=== PATIENT | female | born 1960 | race Caucasian/White ===

== ENCOUNTER 2018-01-28 09:56 | Inpatient (IN) | payer OTHER ==
[2018-01-28 12:33] VITALS: BMI 19.5
[2018-01-31] MEDS ORDERED: CEFAZOLIN/Water 2 GM/20 ML SYRINGE ONE (10:31)
[2018-01-31 11:13] LABS: PTT 28.9 SEC (22.9-36.1); Prothrombin Time 13.2 SEC (12.0-14.7)
[2018-01-31 11:16] LABS: #Basophils 0.1 thou/uL (0.0-0.2); #Eosinphils 0.1 thou/uL (0.0-0.7); #Lymphocytes 2.2 thou/uL (1.20-3.40); #Monocytes 0.4 thou/uL (0.11-0.59); #Neutrophils 5.4 thou/uL (1.40-6.50); %Basophils 0.8 % (0.0-1.0); %Eosinophils 0.6 % (0.0-10.0); %Lymphocytes 26.7 % (21.0-51.0); %Monocytes 4.7 % (0.0-10.0); %Neutrophils 67.2 % (42.0-75.0); Hemoglobin 14.2 g/dL (12.0-16.0); Mean Corpuscular HGB CONC 32.9 g/dL (32.0-36.0); Mean Corpuscular Hemoglobin 33.7 pg (27.0-31.0); Mean Platelet Volume 7.5 fL (7.4-10.4); Platelet Count 252 thou/uL (130-400); RBC Distribution Width 11.7 % (11.5-14.5); White Blood Cell (WBC) Count 8.1 thou/uL (4.8-10.8)
[2018-01-31 11:40] LABS: Anion Gap 13 mmol/L (10-20); BUN (Urea Nitrogen) 9 mg/dL (9.8-20.1); Calc. Creatinine Clearance 62 mL/min (70-130); Calcium 9.3 mg/dL (7.8-10.44); Carbon Dioxide 22 mmol/L (22-29); Chloride 109 mmol/L (98-107); Estimated GFR-MDRD 83; Glucose 97 mg/dL (70-105); Sodium 140 mmol/L (136-145)
[2018-01-31] MEDS ORDERED: Sodium Chloride 0.9% 10 ML ONE (12:24)
[2018-01-31] MEDS ORDERED: Midazolam HCl 2 mg/2 ml Vial ONE (12:31)
[2018-01-31] MEDS ORDERED: Fentanyl 250 MCG/5 ML VIAL ONE (12:31)
[2018-01-31] MEDS ORDERED: Dexamethasone 20 MG/5 ML VIAL ONE (12:45)
[2018-01-31] MEDS ORDERED: Ondansetron HCl/PF 4 MG/2 ML Vial ONE (12:45)
[2018-01-31] MEDS ORDERED: Lidocaine 1% PF 5 ML VIAL ONE (12:45)
[2018-01-31] MEDS ORDERED: PHENYLEPHRINE-NS 100 MCG/ML 10 ML SYRINGE ONE (12:45)
[2018-01-31] MEDS ORDERED: PROPOFOL 200 MG/20 ML VIAL ONE (12:45)
[2018-01-31] MEDS ORDERED: ePHEDrine/0.9% NaCl/PF SYRINGE 50 mg/10 ml ONE (12:45)
[2018-01-31] MEDS ORDERED: Glycopyrrolate 0.2 MG/ML 5 ML SYRINGE ONE (12:45)
[2018-01-31] MEDS ORDERED: Bacitracin Zinc Ointment 30 gm TUBE ONE (13:13)
[2018-01-31] MEDS ORDERED: HYDROmorphone 2 MG/ML VIAL SLOW IVP PRN (14:56)
[2018-01-31] MEDS ORDERED: Promethazine HCl 25 MG/ML VIAL SLOW IVP PRN (14:56)
[2018-01-31] MEDS ORDERED: Promethazine HCl 25 MG/ML VIAL IM PRN ×2 (14:56→17:08)
[2018-01-31] MEDS ORDERED: Fentanyl 100 MCG/2 ML VIAL ONE ×2 (14:56→15:13)
[2018-01-31] MEDS ORDERED: Ondansetron HCl/PF 4 MG/2 ML Vial IVP PRN (14:56)
[2018-01-31] MEDS ORDERED: HYDROmorphone 2 MG/ML VIAL ONE (15:32)
[2018-01-31] MEDS ORDERED: Promethazine 25 MG TAB PO PRN (17:08)
[2018-01-31] MEDS ORDERED: diphenhydrAMINE 50 MG/ML VIAL IVP PRN (17:08)
[2018-01-31] MEDS ORDERED: HYDROcodone/Acetaminophen 10/325 mg Tablet PO PRN (17:08)
[2018-01-31] MEDS ORDERED: diphenhydrAMINE 25 MG CAP PO PRN (17:08)
[2018-01-31] MEDS ORDERED: Milk Of Magnesia 30 ML UDCUP PO PRN (17:08)
[2018-01-31] MEDS ORDERED: traMADol HCl 50 MG TAB PO PRN ×2 (17:08)
[2018-01-31] MEDS ORDERED: Mag-Al 1200 mg/1200 mg/30 ML UDCUP PO PRN (17:08)
[2018-01-31] MEDS ORDERED: Promethazine HCl 12.5 MG SUPP PR PRN (17:08)
--- NOTE | 2018-01-31 20:09 | OP ---
DATE OF PROCEDURE: 01/31/2018 SURGEON: Merritt Zavaleta M.D. HOME HEALTH AIDE: Lia Benitez PROCEDURE: Removal of hardware, anterior cervical spine exploration, spinal fusion, anterior cervica l spine C3-C4 anterior cervical diskectomy, interbody arthrodesis, intravertebral biomechanical devic e, local morselized autograft, demineralized bone matrix, anterior titanium instrumentation C3-4; po sterior approach C3-C7 posterolateral arthrodesis, lateral mass screw instrumentation C3-C7, deminera lized bone matrix, and local morselized autograft. PROCEDURE IN DETAIL: The patient was brought to the operating room and intubated. She was positione d supine in modest extension on a gel-filled donut. A longitudinal incision was made and we exposed the anterior cervical spine and the prior plate. The plate was removed without difficulty. We explo red the fusion and it was unclear whether it was solid. We next placed distraction across C3-4, comp letely decompressed the intravertebral disk and debrided the intravertebral disk materials. The bony endplates were decorticated for the purpose of arthrodesis and appropriately sized intravertebral bi omechanical PEEK device was brought into the field, filled with demineralized bone matrix and local m orselized autograft, and tapped into place securely at C3-4. Next, an anterior plate was brought in the field and secured to C3 and C4 using two 14 mm screws at each level. The wound was then extensiv daren irrigated, immaculate hemostasis was secured, and the wound was closed in anatomic layers over a drain. Patient then rolled in the prone position on gel-filled chest rolls and head fixed in the pin ion header up in a neutral position. Incision made in the posterior cervical region exposing C3-C7 and our level was confirmed by x-ray. There was some intermittent evidence of bony fusion posterior ly, although not at each level. We placed lateral mass screws at right C3 through C7 and these were secured by frank, connected by nuts which were final tightened. The posterolateral surfaces were prepa red for the purpose of arthrodesis and a combination of demineralized bone matrix and local morselize d autograft was laid over the laminar and posterolateral surfaces for the purpose of arthrodesis. Va ncomycin powder was applied and the wound was then closed in anatomic layers.
[2018-01-31] MEDS: Sodium Chloride 0.9% 1,000 ML IV SCH (20:14)
[2018-01-31] MEDS: Simvastatin 40 MG TAB PO SCH (20:18)
[2018-01-31] MEDS: Topiramate 100 MG TAB PO SCH (20:18)
[2018-01-31] MEDS: CEFAZOLIN/Water 2 GM/20 ML SYRINGE SLOW IVP SCH (21:30)
[2018-01-31] MEDS: HYDROcodone/Acetaminophen 10/325 mg Tablet PO PRN (23:03)
[2018-02-01] MEDS: HYDROcodone/Acetaminophen 10/325 mg Tablet PO PRN ×4 (04:25→22:36)
[2018-02-01] MEDS: tiZANidine HCl 4 MG TAB PO PRN ×3 (04:26→20:27)
[2018-02-01] MEDS: CEFAZOLIN/Water 2 GM/20 ML SYRINGE SLOW IVP SCH ×2 (05:29→14:35)
--- NOTE | 2018-02-01 07:04 | PRG ---
DATE OF SERVICE: 02/01/2018 SUBJECTIVE: The patient is a 57-year-old female status post C3-C4 ACDF, C3-C7 posterior fusion, post operative day #1. She is complaining of some discomfort, particularly over the posterior neck and be tween the shoulder blades. This appears consistent with muscle spasm. I have discussed with her jessi trent, more regular dosing of her Zanaflex and we will also try application of heat and ice to the affec bora area. Her incisions both appear clean and intact and dry. Her OLEG output from the anterior incis ion only put out 50 mL overnight. We will plan to remove today. We will plan to continue to work on pain control, mobilizing, and advancing the patient's diet.
[2018-02-01] MEDS: Topiramate 100 MG TAB PO SCH ×2 (08:34→20:27)
[2018-02-01] MEDS: Sodium Chloride 0.9% 1,000 ML IV SCH ×2 (08:42→23:04)
[2018-02-01] MEDS: Simvastatin 40 MG TAB PO SCH (20:27)
[2018-02-01] MEDS: Cephalexin 250 MG CAP PO SCH (20:27)
[2018-02-01] MEDS ORDERED: Cephalexin 250 MG CAP PO SCH (21:00)
[2018-02-02] MEDS: HYDROcodone/Acetaminophen 10/325 mg Tablet PO PRN ×2 (03:11→09:57)
[2018-02-02] MEDS: tiZANidine HCl 4 MG TAB PO PRN ×2 (03:11→11:11)
--- NOTE | 2018-02-02 07:09 | DIS ---
DATE OF ADMISSION: 01/31/2018 DATE OF DISCHARGE: 02/02/2018 ATTENDING PHYSICIAN: Dr. Merritt Zavaleta HOSPITAL COURSE: The patient is a 57-year-old female status post removal of hardware, C3-4 ACDF, C3-C7 posterior fusion for significant cervical stenosis anterolisthesis at C3-C4 and spondyli tic changes. Her postoperative course was uncomplicated. Her pain was well controlled with p.o. med ications, she was tolerating regular diet, and she is voiding appropriately. Her OLEG output trended d ownward and was removed on postoperative day #1. I am seeing the patient at the bedside. She is awake, alert, comfortable in no acute distress. Inci sions are both soft, dry, and intact. She has 5/5 strength throughout. No focal weakness. Sensatio n intact to light touch. We will plan to dismiss the patient to home. I have discussed home care precautions and we will plan to follow up the patient in 2 weeks in the office. I provided with scripts for [place], Zanaflex and Keflex.
[2018-02-02 08:31] VITALS: BP 112/70
[2018-02-02 08:38] VITALS: TEMP 97.4
[2018-02-02] MEDS: Cephalexin 250 MG CAP PO SCH (09:57)
[2018-02-02] MEDS: Topiramate 100 MG TAB PO SCH (09:58)
[2018-02-02] MEDS: Sodium Chloride 0.9% 1,000 ML IV SCH (11:13)
== END 2018-02-02 11:28 | disposition home or self-care (01) | DRG 455 ==
LOC: SURG A 01-31 08:33 → SURG B 01-31 17:09
PROVIDERS: ADMIT Neurological Surgery; ATTEND Neurological Surgery
PROC: 0RG10A0 Fusion of Cervical Vertebral Joint with Interbody Fusion Device, Anterior Approach, Anterior Column, Open Approach (ICD-10-PCS; principal; 2018-01-31)
PROC: 0RG2071 Fusion of 2 or more Cervical Vertebral Joints with Autologous Tissue Substitute, Posterior Approach, Posterior Column, Open Approach (ICD-10-PCS; 2018-01-31)
PROC: 0RT30ZZ Resection of Cervical Vertebral Disc, Open Approach (ICD-10-PCS; 2018-01-31)
DX: M48.02 Spinal stenosis, cervical region (principal); M54.12 Radiculopathy, cervical region; M43.02 Spondylolysis, cervical region; Z88.8 Allergy status to other drugs, medicaments and biological substances
CPT/HCPCS: 76001; 80048; 85025; 85610; 85730; A4216; C1713; C1776; G8978-GP-CK; G8979-GP-CK; G8980-GP-CK; J1100; J1170; J2001; J2250; J2270; J2405; J2704; J3010; J3370; J3490

== ENCOUNTER 2018-02-16 10:35 | Outpatient (CLI) | payer OTHER ==
--- NOTE | 2018-02-16 12:13 | RAD ---
CERVICAL SPINE 3 VIEWS: HISTORY: Cervical radiculopathy. Postop followup. FINDINGS: Skin isael are seen posteriorly indicating recent surgery. Anterior plate and screws transfix C3-4. Interbody implants are noted at C3-4, C4-5, C5-6, and C6-7. Posterior pedicle screws on the right with rods noted at C3, C4, C5, C6, and C7. Slight anterolisthesis at C7-T1 measured at approximately 2 mm. There is mild wedging of C6. Product Demonstrator ior spondylosis at C5-6 and C6-7. IMPRESSION: There are postoperative and degenerative changes of the cervical spine noted as described. POS: [facility]
== END 2018-02-16 10:36 | disposition home or self-care (01) ==
LOC: TBSIIMAG 10:35
PROVIDERS: ATTEND Neurological Surgery
DX: M47.22 Other spondylosis with radiculopathy, cervical region (principal); Z98.1 Arthrodesis status
CPT/HCPCS: 72040

== ENCOUNTER 2019-05-22 07:16 | Inpatient (IN) | payer OTHER ==
[2019-05-19 10:51] VITALS: BMI 21.4
[2019-05-22 09:25] LABS: #Basophils 0.1 thou/uL (0.0-0.2); #Eosinphils 0.2 thou/uL (0.0-0.7); #Lymphocytes 2.9 thou/uL (1.20-3.40); #Monocytes 0.8 thou/uL (0.11-0.59); #Neutrophils 5.5 thou/uL (1.40-6.50); %Basophils 0.8 % (0.0-1.0); %Eosinophils 2.2 % (0.0-10.0); %Lymphocytes 30.6 % (21.0-51.0); %Monocytes 8.2 % (0.0-10.0); %Neutrophils 58.3 % (42.0-75.0); Hemoglobin 14.6 g/dL (12.0-16.0); Mean Corpuscular HGB CONC 34.3 g/dL (32.0-36.0); Mean Corpuscular Hemoglobin 34.3 pg (27.0-31.0); Mean Corpuscular Volume 99.9 fL (78.0-98.0); Mean Platelet Volume 7.5 fL (7.4-10.4); Platelet Count 234 thou/uL (130-400); RBC Distribution Width 11.8 % (11.5-14.5); Red Blood Cell (RBC) Count 4.25 mill/uL (4.20-5.40); White Blood Cell (WBC) Count 9.5 thou/uL (4.8-10.8)
[2019-05-22 09:39] LABS: Anion Gap 10 mmol/L (10-20); BUN (Urea Nitrogen) 14 mg/dL (9.8-20.1); Calc. Creatinine Clearance 52 mL/min (70-130); Calcium 9.6 mg/dL (7.8-10.44); Carbon Dioxide 28 mmol/L (22-29); Chloride 106 mmol/L (98-107); Estimated GFR-MDRD 63; Glucose 99 mg/dL (70-105); Potassium 4.4 mmol/L (3.5-5.1); Sodium 140 mmol/L (136-145)
[2019-05-22] MEDS ORDERED: Fentanyl 100 MCG/2 ML VIAL ONE ×3 (12:38→14:41)
[2019-05-22] MEDS ORDERED: HYDROmorphone 2 MG/ML VIAL ONE (12:38)
[2019-05-22] MEDS ORDERED: HYDROmorphone 2 MG/ML VIAL SLOW IVP PRN (13:33)
[2019-05-22] MEDS ORDERED: Meperidine HCl/PF 25 MG/ML VIAL SLOW IVP PRN (13:33)
[2019-05-22] MEDS ORDERED: Promethazine HCl 25 MG/ML VIAL IM PRN (13:33)
--- NOTE | 2019-05-22 14:12 | OP ---
DATE OF PROCEDURE: 05/22/2019 SET UP MECHANIC: Hina Borden PA-C PROCEDURE PERFORMED: Exploration of spinal fusion C3 through C7, removal of hardware C3 through C7, posterolateral arthrodesis, BMP and cancellous bone chips C3 through C7. DESCRIPTION OF PROCEDURE: The patient was brought to the operating room and intubated. She was rolled in a prone position on gel-filled chest rolls. The posterior incision was reopened and exposed bilaterally. We identified the previous hardware and removed this without difficulty. We explored the fusion from posteriorly and could not ascertain its solidity. We elected to prepare the posterior surfaces bilaterally for the purpose of arthrodesis and then placed a combination of BMP on Gelf[place]am combined with cancellous bone chips over the lamina on the posterolateral surfaces from C3 through C7 for the purpose of arthrodesis. MAC hemostasis was secured. Vancomycin powder was applied and the wound was closed in anatomic layers. Job ID: [id number]
[2019-05-22] MEDS ORDERED: Dexamethasone 20 MG/5 ML VIAL ONE (14:20)
[2019-05-22] MEDS ORDERED: Ketorolac Tromethamine 30 MG/ML VIAL ONE (14:20)
[2019-05-22] MEDS ORDERED: Rocuronium Bromide 10 MG/ML (10ML VIAL) ONE (14:20)
[2019-05-22] MEDS ORDERED: PROPOFOL 200 MG/20 ML VIAL ONE (14:20)
[2019-05-22] MEDS ORDERED: Ondansetron PF 4 MG/2 ML Vial ONE (14:20)
[2019-05-22] MEDS ORDERED: Glycopyrrolate 0.2 MG/ML 5 ML SYRINGE ONE (14:20)
[2019-05-22] MEDS ORDERED: Lidocaine 1% PF 5 ML VIAL ONE (14:20)
[2019-05-22] MEDS ORDERED: HYDROcodone/Acetaminophen 10/325 mg Tablet PO PRN ×2 (15:23)
[2019-05-22] MEDS ORDERED: diphenhydrAMINE 25 MG CAP PO PRN (15:23)
[2019-05-22] MEDS ORDERED: Morphine 2 MG/ML SYRINGE SLOW IVP PRN (15:23)
[2019-05-22] MEDS ORDERED: diphenhydrAMINE 50 MG/ML VIAL IVP PRN (15:23)
[2019-05-22] MEDS ORDERED: Morphine 4 MG/ML VIAL SLOW IVP PRN (15:23)
[2019-05-22] MEDS ORDERED: Milk Of Magnesia 30 ML UDCUP PO PRN (15:23)
[2019-05-22] MEDS ORDERED: Mag-Al 1200 mg/1200 mg/30 ML UDCUP PO PRN (15:23)
[2019-05-22] MEDS ORDERED: Ondansetron PF 4 MG/2 ML Vial IVP PRN (15:23)
[2019-05-22] MEDS ORDERED: traMADol HCl 50 MG TAB PO PRN ×2 (15:23)
[2019-05-22] MEDS ORDERED: tiZANidine HCl 4 MG TAB PO PRN ×2 (15:23→15:30)
[2019-05-22] MEDS ORDERED: PROVENTIL INHALER 6.7 G (200 INHALATIONS) INH PRN (15:27)
[2019-05-22] MEDS ORDERED: SUMAtriptan Succinate 50 MG TAB PO PRN (15:30)
[2019-05-22] MEDS: Morphine IR Tab 15 MG TAB PO SCH ×2 (17:27→22:52)
[2019-05-22] MEDS: Sodium Chloride 0.9% 1,000 ML IV SCH (18:37)
[2019-05-22] MEDS ORDERED: Amitriptyline HCl 25 MG TAB PO SCH (21:00)
[2019-05-22] MEDS ORDERED: Atorvastatin Calcium 20 MG TAB PO SCH (21:00)
[2019-05-22] MEDS: CEFAZOLIN 2 GM in Premix Bag 1 BAG IVPB SCH (22:54)
[2019-05-22] MEDS: Varenicline Tartrate 0.5 MG TAB PO SCH (22:54)
[2019-05-23] MEDS: CEFAZOLIN 2 GM in Premix Bag 1 BAG IVPB SCH (06:02)
[2019-05-23] MEDS: Sodium Chloride 0.9% 1,000 ML IV SCH (06:06)
[2019-05-23 07:49] VITALS: BP 119/81; TEMP 98.1
[2019-05-23] MEDS: Morphine IR Tab 15 MG TAB PO SCH (08:37)
[2019-05-23] MEDS: Varenicline Tartrate 0.5 MG TAB PO SCH (08:38)
[2019-05-23] MEDS ORDERED: Loratadine 10 MG TAB PO SCH (09:00)
[2019-05-23] MEDS ORDERED: Cyanocobalamin (Vitamin B-12) 1,000 MCG TAB PO SCH (09:00)
--- NOTE | 2019-05-23 11:51 | DIS ---
DATE OF ADMISSION: 05/22/2019 DATE OF DISCHARGE: 05/23/2019 The patient is a 59-year-old female, recently evaluated in our office for progressive neck pain and found to have hardware failure for posterior fusion from C3 to C7. She underwent removal of posterior hardware with placement of BMP on 05/22/2019. Following the surgery, she was transitioned to the Med/Surg floor, where her pain was well controlled with p.o. medications, she was tolerating regular diet, and she was voiding appropriately. Her incision remained clean, dry, and intact and she had no other issues. Dismissed to home on 05/23/2019. I discussed home care precautions. We will follow up with the patient in 2 weeks. Job ID: [id number]
--- NOTE | 2019-05-24 13:36 | EKG ---
Test Reason : PREOP Blood Pressure : / mmHG Vent. 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
== END 2019-05-23 10:16 | disposition home or self-care (01) | DRG 473 ==
LOC: SURG A 07:16
PROVIDERS: ADMIT Neurological Surgery; ATTEND Neurological Surgery
PROC: 0RG20K1 Fusion of 2 or more Cervical Vertebral Joints with Nonautologous Tissue Substitute, Posterior Approach, Posterior Column, Open Approach (ICD-10-PCS; principal; 2019-05-22)
PROC: 0RP104Z Removal of Internal Fixation Device from Cervical Vertebral Joint, Open Approach (ICD-10-PCS; 2019-05-22)
PROC: 3E0U0GB Introduction of Recombinant Bone Morphogenetic Protein into Joints, Open Approach (ICD-10-PCS; 2019-05-22)
DX: T84.216A Breakdown (mechanical) of internal fixation device of vertebrae, initial encounter (principal); M54.12 Radiculopathy, cervical region; J45.909 Unspecified asthma, uncomplicated; E78.5 Hyperlipidemia, unspecified; Z90.710 Acquired absence of both cervix and uterus; Z88.8 Allergy status to other drugs, medicaments and biological substances
CPT/HCPCS: 36415; 80048; 85025; 93005; 93010; J0690; J1100; J1170; J1885; J2001; J2405; J2704; J2710; J3010; J3370